=== PATIENT | male | born 1990 | race Two or more races ===

== ENCOUNTER 2017-12-18 14:11 | Emergency (ER) | payer BC ==
[2017-12-18 14:23] VITALS: BP 120/59
--- NOTE | 2017-12-18 16:34 | UC ---
Leah Brunson Nilda, scribed for Sylvester Finney MD on 12/18/17 at 1455 . Ear Complaint HPI - HPI Summary HPI Summary: This patient is a 27 year old M presenting to [facility] [place] with a chief complaint of right ear pain for the last 3-4 days. The patient rates the pain 4/10 in severity. Symptoms aggravated and alleviated by nothing. Patient denies fever, chills, sore throat, and rhinorrhea. PMHx includes frequent ear infections every few months until a couple years ago. - History of Current Complaint Chief Complaint: UCEar Stated Complaint: EAR PAIN Time Seen by Provider: 12/18/17 14:26 Hx Obtained From: Patient Onset/Duration: Sudden Onset Severity Currently: Moderate Pain Intensity: 4 Pain Scale Used: 0-10 Numeric Aggravating Factors: Nothing Alleviating Factors: Nothing - Allergies/Home Medications Allergies/Adverse Reactions: Allergies Allergy/AdvReac Type Severity Reaction Status Date / Time shellfish derived Allergy Swelling Verified 12/18/17 14:24 Of Face,Lips,& Throat Home Medications: Home Medications Mometasone/Formoter 200/5 MDI* [Dulera 200/5 MDI*] 2 puff PO BID 12/18/17 [ History Confirmed 12/18/17] PMH/Surg Hx/FS Hx/Imm Hx Previously Healthy: Yes - Surgical History Surgical History: Yes Surgery Procedure, Year, and Place: EAR TUBES. tonsilectomy - Family History Known Family History: Positive: Unknown - pt is adopted - Social History Alcohol Use: None Substance Use Type: None Smoking Status (MU): Never Smoked Tobacco Have You Smoked in the Last Year: No Review of Systems Constitutional: Fever, Chills ENT: Sore Throat, Ear Ache - right, Nasal Discharge All Other Systems Reviewed And Are Negative: Yes Physical Exam Triage Information Reviewed: Yes Vital Signs: Initial Vital Signs Temp 98.8 F 12/18/17 14:21 Pulse 58 12/18/17 14:21 Resp 12 12/18/17 14:21 BP 120/59 12/18/17 14:21 Pulse Ox 98 12/18/17 14:21 Vital Signs Reviewed: Yes - Additional Comments VITAL SIGNS: Reviewed. GENERAL: Patient is a well developed and nourished M who is lying comfortable in the stretcher. Patient is not in any acute respiratory distress. HEAD AND FACE: Normocephalic EYES: PERRLA, EOMI x 2. EARS: Hearing grossly intact. Right TM is erythematous and bulging MOUTH: Oropharynx within normal limits. NECK: Supple, trachea is midline, no adenopathy, no JVD, no carotid bruit. CHEST: Symmetric, no tenderness at palpation LUNGS: Clear to auscultation bilaterally. No wheezing or crackles. CVS: Regular rate and rhythm, S1 and S2 present, no murmurs or gallops appreciated. ABDOMEN: Soft, non-tender. Bowel sounds are normal. No abdominal abnormal pulsations. EXTREMITIES: Full ROM in all major joints, no edema, no cyanosis or clubbing. NEURO: Alert and oriented x 3. No acute neurological deficits. Speech is normal and follows commands. SKIN: Dry and warm Ear Complaint Course/Dx - Course Course Of Treatment: This patient is a 27 year old M presenting to [facility] [place] with a chief complaint of right ear pain for the last 3-4 days. The patient rates the pain 4/10 in severity. Symptoms aggravated and alleviated by nothing. Patient denies fever, chills, sore throat, and rhinorrhea. PMHx includes frequent ear infections every few months until a couple years ago. Medications given. I discussed all the findings and test results with the patient. Patient was instructed to return to the urgent care or go to ER immediately if any of the symptoms return or worsens. Plan of care was discussed with the patient and patient understands and agrees. All questions were answered to patient satisfaction. There were no further complaints or concerns. - Differential Dx/Diagnosis Differential Diagnosis/HQI/PQRI: Cellulitis, Mastoiditis, Otitis Externa, Otitis Media, URI Provider Diagnoses: otitis media Discharge - Discharge Plan Condition: Stable Disposition: HOME Prescriptions: Amoxicillin PO (*) [Amoxicillin 875 MG (*)] 875 mg PO BID #20 tab Ibuprofen TAB* [Motrin TAB* 600 MG] 600 mg PO Q8H PRN #30 tab PRN Reason: Pain Patient Education Materials: Ear Infection (ED) Referrals: [facility] [place] PHYSICIAN REFERRAL [Outside] No Primary Care Phys,NOPCP [Primary Care Provider] - Additional Instructions: Take medications as instructed Increase your fluid intake Return to the if symptoms worsen The documentation as recorded by the Leah baptiste Nilda accurately reflects the service I personally performed and the decisions made by me, Sylvester Finney MD.
== END 2017-12-18 14:39 | disposition home or self-care (01) ==
LOC: UCEAST 14:11
DX: H66.91 Otitis media, unspecified, right ear (principal)
CPT/HCPCS: 99212; G0463